=== PATIENT | male | born 1980 ===

== ENCOUNTER 2017-06-12 17:04 | Emergency (ER) | payer SELFPAY ==
[~2017-06-12] VITALS: Ht 157.5 cm; Wt 80.0 kg
[2017-06-12 17:09] VITALS: Ht 157.5 cm; Wt 80.0 kg
--- NOTE | 2017-06-12 18:25 | ERD ---
ER Documentation Chief Complaint Date/Time DATE: 06/12/17 Chief Complaint Requesting HIV PEP HPI The patient is a 37-year-old male presenting to the emergency department requesting post-exposure prophylaxis. The patient reports that last night, at approximately 2:00 am, while having sexual intercourse with a female who is HIV+ , the condom broke. He therefore presents today requesting post-exposure prophylaxis. He denies fever, sweats, chills, nausea, vomiting, headache, dizziness, weakness, chest pain, palpitations, shortness of breath. Denies any known drug allergies. Denies known liver disease. Denies history of pancreatitis , neuropathy, kidney stones, anemia, diabetes, dyslipidemia, asthma or COPD. Denies any other complaints at this time. ROS All systems reviewed and are negative except as per history of present illness. Medications Home Meds Active Scripts Emtricitabine-Tenofovir* (Truvada*) 200-300 Mg Tablet, 1 TAB PO DAILY for 28 Days, TAB Prov:AHSAN DIOP PA-C 06/12/17 Raltegravir Potassium* (Isentress*) 400 Mg Tablet, 400 MG PO BID for 28 Days, TAB Prov:AHSAN DIOP PA-C 06/12/17 PMhx/Soc Medical and Surgical Hx: pt denies Medical Hx, pt denies Surgical Hx Hx Alcohol Use: No Hx Substance Use: No Hx Tobacco Use: No Smoking Status: Never smoker Physical Exam Vitals Vital Signs Date Time Temp Pulse Resp B/P Pulse Ox O2 Delivery O2 Flow Rate FiO2 06/12/17 17:09 98.2 84 18 133/84 99 Physical Exam Const: Well-developed, well-nourished, in no acute distress. Head: Atraumatic Eyes: Normal Conjunctiva ENT: Normal External Ears, Nose and Mouth. Neck: Full range of motion Resp: Clear to auscultation bilaterally Cardio: Regular rate and rhythm, no murmurs Abd: Soft, non tender, non distended. Normal bowel sounds. No guarding. No rebound tenderness. No gross peritonitis. No CVA tenderness. Skin: No petechiae or rashes Back: No midline or flank tenderness Ext: No cyanosis, or edema Neur: Awake and alert. No focal neurologic deficits. Psych: Normal Mood and Affect Results 24 hrs Laboratory Tests Test 06/12/17 18:30 Aspartate Amino Transf (AST/SGOT) 49IU/L Alanine Aminotransferase (ALT/SGPT) 30IU/L Hepatitis B Surface Antigen NEGATIVE Hepatitis B Surface Antibody NEGATIVE Hepatitis C Antibody NEGATIVE HIV (1&2) Antibody NEGATIVE Current Medications Medications (Trade) Dose Ordered Sig/Bennett Route PRN Reason Start Time Stop Time Status Last Admin Dose Admin Emtricitabine/ Tenofovir (Truvada) 1 tab ONCE ONCE PO 06/12/17 18:30 06/12/17 18:31 DC 06/12/17 19:40 Miscellaneous Medication (Isentress) 400 mg ONCE ONCE PO 06/12/17 18:30 06/12/17 18:31 DC 06/12/17 19:41 Procedures/MDM EMERGENCY DEPARTMENT COURSE: The patient was stable throughout the ED course. Baseline set of labs (LFTS, HIV, Hepatitis panel) ordered. Discussed patient case with ED attending physician, Dr. Vazquez, who recommends administration of Isentress and Truvada (first doses in the ED) and then discharge home with Isentress BID x 28 days, Truvada daily x 28 days. Given recent exposure and wish for post-exposure prophylaxis, Isentress and Truvada ordered. Discussed risks and possible adverse reactions associated with these medications. Patient denies any known allergies. Denies history of kidney or liver disease. Denies taking any other medications. Advised of reactions such as rash, angioedema, vomiting, myalgias, arthralgias, hepatotoxicity, fatigue, renal dysfunction, depression, neuropathy, anxiety, odd dreams, Durán-Ady syndrome, TENS, immunosuppression, headache, dizziness, GI upset. Patient advised that in the ED we are only obtaining a baseline set of labs. He is responsible to follow up with his primary medical provider for repeat testing and further evaluation. Patient advised to not have any from of sex without using a condom. MEDICAL DECISION MAKING: This is a 37-year-old male presenting to the Emergency Department for post-exposure prophylaxis s/p sexual intercourse with another individual who is HIV+. He has no current complaints. Risks vs. benefits for prophylactic treatment discussed. Shared decision making held, and patient requests therapy at this time. Baseline laboratory testing performed, which will be followed up by his primary medical provider. His first doses of Truvada and Isentress were administered in the ED. At this time, the patient is in stable condition and therefore can be discharged home with prescriptions for Isentress and Truvada and given strict return precautions for signs of deteriorating or worsening condition. The patient is advised to follow up with his primary medical provider for sequential testing, further evaluation and management, or return to the ER sooner for any worsening symptoms. I shared my medical decision making and plan with the patient at length and in great detail , and the patient verbally understands and agrees with the plan for further observation and care as an outpatient. At the time of discharge, all questions were answered. Departure Diagnosis: Primary Impression: Contact with and (suspected) exposure to human immunodeficiency virus [hiv] Condition: Stable Patient Instructions: Understanding HIV and AIDS Additional Instructions: Call your primary care doctor TOMORROW for an appointment during the next 2-3 days.See the doctor sooner or return here if your condition worsens before your appointment time. AHSAN DIOP PA-C Jun 12, 2017 18:25
[2017-06-12] MEDS ORDERED: RALT400T4 PO (18:27)
[2017-06-12] MEDS ORDERED: EMTR1TAB11 PO (18:27)
[2017-06-12] MEDS ORDERED: EMTRICITABINE/TENOFOVIR TAB PO ONE (18:30)
[2017-06-12] MEDS ORDERED: RALTEGRAVIR 400 MG TAB PO ONE (18:30)
[2017-06-12 19:27] LABS: ALANINE AMINOTRANSFERASE 30 IU/L (13-69); ASPARTATE AMINO TRANSFERASE 49 IU/L (15-46)
== END 2017-06-12 19:58 | disposition home or self-care (01) ==
LOC: FTE 17:04
DX: Z20.6 Contact with and (suspected) exposure to human immunodeficiency virus [HIV] (principal)
CPT/HCPCS: 84450; 84460; 86703; 86706; 86803; 87340; 99284